=== PATIENT | female | born 1965 | race Caucasian/White ===

== ENCOUNTER 2017-06-10 14:30 | Emergency (ER) | payer MEDICAID, OTHER ==
[~2017-06-10] VITALS: Ht 160 cm; Wt 79.6 kg
[~2017-06-10 14:30] MED LIST: AMLO5TAB2 PO; ASPI-496 PO; ATOR-2 PO; CEFD300C37 PO; CLOT100T PO; ERGO500017 PO; FAMO20TA7 PO; HYDR25TA11 PO; LISI40TA PO; LOSA1TAB22 PO; MELO15TA24 PO; METO25TA35 PO; OMEP40CA3 PO; PANT40TA5 PO; SERT50TA5 PO; SIMV20TA3 PO; TRAM50TA2 PO
[2017-06-10 15:30] LABS: BASOPHILS # (AUTO) 0.07 x10^3/uL (0-0.1); BASOPHILS % (AUTO) 1 % (0-1); EOSINOPHILS # (AUTO) 0.27 x10^3/uL (0-0.4); EOSINOPHILS % (AUTO) 2 % (1-7); LYMPHOCYTES # (AUTO) 2.94 x10^3/uL (1-3.4); LYMPHOCYTES % (AUTO) 26 % (22-44); MD NO; MEAN CORPUSCULAR HEMOGLOBIN 29.9 pg (27.0-34.8); MEAN CORPUSCULAR HGB CONC 33.4 g/dL (32.4-35.8); MEAN CORPUSCULAR VOLUME 89.5 fL (80-100); MEAN PLATELET VOLUME 7.4 fL (7.4-10.4); MONOCYTES # (AUTO) 0.67 x10^3/uL (0.2-0.8); MONOCYTES % (AUTO) 6 % (2-9); NEUTROPHILS # (AUTO) 7.19 x10^3/uL (1.8-6.8); NEUTROPHILS % (AUTO) 65 % (42-75); PLATELET COUNT 420 x10^3/uL (130-400); RED BLOOD COUNT 4.87 x10^6/uL (3.82-5.3); RED CELL DISTRIBUTION WIDTH 12.9 % (9.6-15.2)
[2017-06-10 15:42] LABS: ALBUMIN 4.4 g/dL (3.4-5.0); ANION GAP 9 mmol/L (5-15); CALCIUM 9.9 mg/dL (8.5-10.1); CHLORIDE 103 mmol/L (98-107); CREATININE 1.07 mg/dL (0.55-1.02)
[2017-06-10] MEDS ORDERED: MELO15TA24 PO (17:41)
[2017-06-10] MEDS ORDERED: LOSA1TAB22 PO (17:42)
[2017-06-10] MEDS ORDERED: ATOR40TA PO (17:42)
[2017-06-10 18:55] VITALS: BP 150/74
== END 2017-06-10 18:57 | disposition home or self-care (01) ==
LOC: ED 18:24
DX: G62.9 Polyneuropathy, unspecified (principal); G89.29 Other chronic pain; E78.5 Hyperlipidemia, unspecified; I10 Essential (primary) hypertension
CPT/HCPCS: 36415; 70450; 80048; 82040; 85025; 93005; 99285; J7512

== ENCOUNTER 2017-09-04 20:46 | Inpatient (IN) | payer MEDICAID ==
[~2017-09-04] VITALS: Ht 157.5 cm; Wt 75.0 kg
[~2017-09-04 20:46] MED LIST changes: +ATOR40TA PO
[2017-09-04] MEDS ORDERED: SODIUM CHLORIDE 0.9% 1,000ML IVBOLUS ONE ×2 (21:00→23:00)
[2017-09-04] MEDS ORDERED: ACETAMINOPHEN 500 MG TABLET PO ONE (21:00)
[2017-09-04] MEDS ORDERED: SODIUM CHLORIDE FLUSH 10ML SYR IVF ONE (21:00)
[2017-09-04] MEDS ORDERED: ACETAMINOPHEN 500 MG TABLET ONE (21:12)
[2017-09-04 21:25] LABS: RAPID INFLUENZA A Negative (Negative); RAPID INFLUENZA B Negative (Negative)
[2017-09-04 21:28] LABS: MEAN CORPUSCULAR HEMOGLOBIN 30.3 pg (27.0-34.8); MEAN CORPUSCULAR HGB CONC 33.6 g/dL (32.4-35.8); MEAN CORPUSCULAR VOLUME 90.1 fL (80-100); MEAN PLATELET VOLUME 7.3 fL (7.4-10.4); PLATELET COUNT 341 x10^3/uL (130-400); RED BLOOD COUNT 4.54 x10^6/uL (3.82-5.3); RED CELL DISTRIBUTION WIDTH 12.5 % (9.6-15.2)
[2017-09-04 21:37] LABS: MD YES
[2017-09-04 21:39] LABS: ALBUMIN 4.3 g/dL (3.4-5.0); ANION GAP 11 mmol/L (5-15); CALCIUM 9.3 mg/dL (8.5-10.1); CHLORIDE 104 mmol/L (98-107)
[2017-09-04 21:45] LABS: CULTURE INDICATED? YES; MICROSCOPIC INDICATED
[2017-09-04 21:54] LABS: BAND#(MANUAL) 0.97 x10^3/uL; BANDS%(MANUAL) 4 % (0-7); BASOS#(MANUAL) 0.24 x10^3/uL (0-0.1); BASOS% (MANUAL) 1 % (0-1); EOS#(MANUAL) 0.24 x10^3/uL (0.0-0.4); EOS% (MANUAL) 1 % (1-7); LYMPH#(MANUAL) 1.94 x10^3/uL (1-3.4); LYMPHS% (MANUAL) 8 % (22-44); MONOS#(MANUAL) 0.73 x10^3/uL (0.3-2.7); MONOS% (MANUAL) 3 % (2-9); SEG#(MANUAL) 20.09 x10^3/uL (1.8-6.8); SEGS% (MANUAL) 83 % (42-75)
[2017-09-04 21:55] LABS: <PLATELET ESTIMATE> ADEQUATE; <PLT MORPHOLOGY> NORMAL PLT MORPH; <RBC MORPHOLOGY> NORMAL
[2017-09-04] MEDS ORDERED: CEFTRIAXONE PMX 1GM/50ML 50 ML ONE (23:18)
[2017-09-04] MEDS ORDERED: SODIUM CHLORIDE 0.9% 1,000 ML IV ONE (23:41)
[2017-09-05] MEDS ORDERED: MORPHINE SULFATE 4 MG/ML, 1ML IVPush PRN
[2017-09-05] MEDS ORDERED: ONDANSETRON 2MG/ML, 2ML IVPush PRN
[2017-09-05] MEDS ORDERED: ONDANSETRON ODT 4 MG PO PRN
[2017-09-05] MEDS ORDERED: GUAIFENESIN/DM 200-20MG, 10ML UDC PO PRN
[2017-09-05] MEDS ORDERED: CEFTRIAXONE PMX 1GM/50ML 50 ML ONE (00:20)
[2017-09-05] MEDS ORDERED: CEFTRIAXONE PMX 1GM/50ML 50 ML IV ONE ×2 (00:30)
[2017-09-05] MEDS ORDERED: ERGOCALCIFEROL 50,000 UNIT CAPSULE PO SCH (00:30)
[2017-09-05 01:23] VITALS: BP 128/88
[2017-09-05] MEDS: LACTATED RINGERS 1,000 ML IV SCH ×2 (01:36→14:31)
[2017-09-05 05:41] LABS: MEAN CORPUSCULAR HEMOGLOBIN 29.8 pg (27.0-34.8); MEAN CORPUSCULAR HGB CONC 33.6 g/dL (32.4-35.8); MEAN CORPUSCULAR VOLUME 88.7 fL (80-100); MEAN PLATELET VOLUME 7.2 fL (7.4-10.4); PLATELET COUNT 277 x10^3/uL (130-400); RED BLOOD COUNT 4.17 x10^6/uL (3.82-5.3); RED CELL DISTRIBUTION WIDTH 12.4 % (9.6-15.2)
[2017-09-05 05:46] LABS: ANION GAP 8 mmol/L (5-15); CALCIUM 8.4 mg/dL (8.5-10.1); CHLORIDE 111 mmol/L (98-107); CREATININE 1.12 mg/dL (0.55-1.02)
[2017-09-05 06:57] LABS: MD YES
[2017-09-05 07:00] LABS: BANDS%(MANUAL) 3 % (0-7); LYMPHS% (MANUAL) 6 % (22-44); METAMYELOCYTES% (MANUAL) 1 % (0-1); MONOS% (MANUAL) 5 % (2-9); SEGS% (MANUAL) 85 % (42-75)
[2017-09-05 07:01] LABS: <PLATELET ESTIMATE> ADEQUATE; <PLT MORPHOLOGY> NORMAL PLT MORPH; <RBC MORPHOLOGY> NORMAL
[2017-09-05 07:51] VITALS: BP 133/84
[2017-09-05 08:48] VITALS: BP 159/80
[2017-09-05] MEDS: ASPIRIN 81 MG TABLET EC PO SCH (08:50)
[2017-09-05] MEDS: ACETAMINOPHEN 325 MG TABLET PO PRN ×2 (08:51→17:48)
[2017-09-05] MEDS: CEFTRIAXONE PMX 2GM/50ML 50 ML IV SCH (12:16)
[2017-09-05 13:54] VITALS: BP 152/78
[2017-09-05] MEDS ORDERED: OMNIPAQUE 350 MG/ML, 100ML BOTTLE ONE (18:04)
[2017-09-05 18:45] VITALS: BP 145/61
[2017-09-05] MEDS: ATORVASTATIN 40 MG TABLET PO SCH (20:32)
[2017-09-06 01:14] VITALS: BP 174/98
[2017-09-06] MEDS: LACTATED RINGERS 1,000 ML IV SCH ×2 (05:32→16:30)
[2017-09-06] MEDS: ACETAMINOPHEN 325 MG TABLET PO PRN (05:32)
[2017-09-06] MEDS: ASPIRIN 81 MG TABLET EC PO SCH (08:30)
[2017-09-06 08:32] VITALS: BP 149/89
[2017-09-06 08:32] LABS: MEAN CORPUSCULAR HEMOGLOBIN 29.8 pg (27.0-34.8); MEAN CORPUSCULAR HGB CONC 33.4 g/dL (32.4-35.8); MEAN CORPUSCULAR VOLUME 89.2 fL (80-100); MEAN PLATELET VOLUME 7.2 fL (7.4-10.4); PLATELET COUNT 268 x10^3/uL (130-400); RED BLOOD COUNT 4.02 x10^6/uL (3.82-5.3); RED CELL DISTRIBUTION WIDTH 12.3 % (9.6-15.2)
[2017-09-06 08:52] LABS: BASOPHILS # (AUTO) 0.02 x10^3/uL (0-0.1); BASOPHILS % (AUTO) 0 % (0-1); EOSINOPHILS # (AUTO) 0.21 x10^3/uL (0-0.4); EOSINOPHILS % (AUTO) 1 % (1-7); LYMPHOCYTES # (AUTO) 2.42 x10^3/uL (1-3.4); LYMPHOCYTES % (AUTO) 13 % (22-44); MD SCAN; MONOCYTES # (AUTO) 1.01 x10^3/uL (0.2-0.8); MONOCYTES % (AUTO) 5 % (2-9); NEUTROPHILS # (AUTO) 15.07 x10^3/uL (1.8-6.8); NEUTROPHILS % (AUTO) 81 % (42-75)
[2017-09-06] MEDS: CEFTRIAXONE PMX 2GM/50ML 50 ML IV SCH (12:03)
[2017-09-06 13:37] VITALS: BP 124/84
[2017-09-06 19:40] VITALS: BP 164/95
[2017-09-06] MEDS: ATORVASTATIN 40 MG TABLET PO SCH (20:02)
[2017-09-07 00:59] VITALS: BP 131/83
[2017-09-07] MEDS: ACETAMINOPHEN 325 MG TABLET PO PRN (02:00)
[2017-09-07] MEDS: LACTATED RINGERS 1,000 ML IV SCH (04:53)
[2017-09-07 05:15] LABS: BASOPHILS # (AUTO) 0.03 x10^3/uL (0-0.1); BASOPHILS % (AUTO) 0 % (0-1); EOSINOPHILS # (AUTO) 0.41 x10^3/uL (0-0.4); EOSINOPHILS % (AUTO) 4 % (1-7); LYMPHOCYTES # (AUTO) 2.65 x10^3/uL (1-3.4); LYMPHOCYTES % (AUTO) 24 % (22-44); MD NO; MEAN CORPUSCULAR HEMOGLOBIN 30.1 pg (27.0-34.8); MEAN CORPUSCULAR HGB CONC 33.5 g/dL (32.4-35.8); MEAN CORPUSCULAR VOLUME 89.7 fL (80-100); MEAN PLATELET VOLUME 7.4 fL (7.4-10.4); MONOCYTES # (AUTO) 0.74 x10^3/uL (0.2-0.8); MONOCYTES % (AUTO) 7 % (2-9); NEUTROPHILS # (AUTO) 7.37 x10^3/uL (1.8-6.8); NEUTROPHILS % (AUTO) 66 % (42-75); PLATELET COUNT 283 x10^3/uL (130-400); RED BLOOD COUNT 3.71 x10^6/uL (3.82-5.3); RED CELL DISTRIBUTION WIDTH 12.4 % (9.6-15.2)
[2017-09-07 05:25] LABS: ANION GAP 8 mmol/L (5-15); CALCIUM 8.5 mg/dL (8.5-10.1); CHLORIDE 111 mmol/L (98-107); CREATININE 0.87 mg/dL (0.55-1.02)
[2017-09-07 08:50] VITALS: BP 164/103
[2017-09-07] MEDS: ASPIRIN 81 MG TABLET EC PO SCH (09:02)
[2017-09-07] MEDS ORDERED: FUROSEMIDE 40 MG/4 ML IV ONE (09:30)
[2017-09-07] MEDS ORDERED: POTASSIUM CHLORIDE 20 MEQ TAB.ER.PRT PO ONE (09:30)
[2017-09-07] MEDS ORDERED: CEFTRIAXONE PMX 2GM/50ML 50 ML IV SCH (10:00)
[2017-09-07 11:10] VITALS: BP 134/89
== END 2017-09-07 11:50 | disposition home or self-care (01) | DRG 871 ==
LOC: ED 22:15 → EDIP 23:41 → 4EST 09-05 00:56 → DCLOUNGE 09-07 11:32
PROVIDERS: ADMIT Hospitalist; ATTEND Hospitalist
DX: A41.9 Sepsis, unspecified organism (principal); N17.0 Acute kidney failure with tubular necrosis; N39.0 Urinary tract infection, site not specified; E78.5 Hyperlipidemia, unspecified; G89.29 Other chronic pain; I12.9 Hypertensive chronic kidney disease with stage 1 through stage 4 chronic kidney disease, or unspecified chronic kidney disease; J11.1 Influenza due to unidentified influenza virus with other respiratory manifestations; J45.909 Unspecified asthma, uncomplicated; N18.2 Chronic kidney disease, stage 2 (mild); Z86.73 Personal history of transient ischemic attack (TIA), and cerebral infarction without residual deficits; G62.9 Polyneuropathy, unspecified; M54.5 Low back pain
CPT/HCPCS: 36415; 71046; 74177; 80048; 81001; 82040; 83605; 84145; 85025; 87040; 87086; 87400; 93005; 96365; J0696; J1940; Q9967; J7030; J7120

== ENCOUNTER 2018-01-25 17:30 | Emergency (ER) | payer MEDICAID ==
[~2018-01-25] VITALS: Ht 157.5 cm; Wt 76.0 kg
[2018-01-25] MEDS ORDERED: ALBUTEROL/IPRATROPIUM 2.5MG/0.5MG, 3 ML ONE (17:55)
[2018-01-25] MEDS ORDERED: SODIUM CHLORIDE FLUSH 10ML SYR IVF ONE (18:00)
[2018-01-25] MEDS ORDERED: ALBUTEROL/IPRATROPIUM 2.5MG/0.5MG, 3 ML NPPB ONE (18:00)
[2018-01-25 18:04] LABS: BASOPHILS % (AUTO) 1 % (0-1); EOSINOPHILS # (AUTO) 0.37 x10^3/uL (0-0.4); EOSINOPHILS % (AUTO) 4 % (1-7); LYMPHOCYTES # (AUTO) 3.82 x10^3/uL (1-3.4); LYMPHOCYTES % (AUTO) 36 % (22-44); MD NO; MEAN CORPUSCULAR HGB CONC 33.9 g/dL (32.4-35.8); MEAN CORPUSCULAR VOLUME 88.4 fL (80-100); MEAN PLATELET VOLUME 7.2 fL (7.4-10.4); MONOCYTES # (AUTO) 0.75 x10^3/uL (0.2-0.8); MONOCYTES % (AUTO) 7 % (2-9); NEUTROPHILS # (AUTO) 5.61 x10^3/uL (1.8-6.8); NEUTROPHILS % (AUTO) 53 % (42-75); PLATELET COUNT 493 x10^3/uL (130-400); RED BLOOD COUNT 4.15 x10^6/uL (3.82-5.3); RED CELL DISTRIBUTION WIDTH 12.3 % (9.6-15.2)
[2018-01-25 18:12] LABS: ALANINE AMINOTRANSFERASE 30 U/L (12-78); ANION GAP 8 mmol/L (5-15); CALCIUM 9.2 mg/dL (8.5-10.1); CHLORIDE 108 mmol/L (98-107)
[2018-01-25 18:17] LABS: ALKALINE PHOSPHATASE 99 U/L (45-117); BILIRUBIN,TOTAL 0.3 mg/dL (0.2-1.0); TOTAL PROTEIN 7.8 g/dL (6.4-8.2)
[2018-01-25 18:37] VITALS: BP 123/46
== END 2018-01-25 19:01 | disposition home or self-care (01) ==
LOC: ED 18:50
DX: J20.8 Acute bronchitis due to other specified organisms (principal); B97.89 Other viral agents as the cause of diseases classified elsewhere; I10 Essential (primary) hypertension; G89.29 Other chronic pain; J45.909 Unspecified asthma, uncomplicated; E78.5 Hyperlipidemia, unspecified; Z86.73 Personal history of transient ischemic attack (TIA), and cerebral infarction without residual deficits
CPT/HCPCS: 36415; 71046; 80053; 83880; 85025; 93005; 94640; 99285; J7512

== ENCOUNTER 2018-04-02 16:19 | Emergency (ER) | payer MEDICAID ==
[~2018-04-02] VITALS: Ht 157.5 cm; Wt 78.0 kg
[~2018-04-02 16:19] MED LIST changes: -AMLO5TAB2 PO; +AMLO5TAB7 PO
[2018-04-02] MEDS ORDERED: SODIUM CHLORIDE FLUSH 10ML SYR IVF ONE (17:00)
[2018-04-02 17:16] LABS: BASOPHILS # (AUTO) 0.05 x10^3/uL (0-0.1); BASOPHILS % (AUTO) 1 % (0-1); EOSINOPHILS # (AUTO) 0.45 x10^3/uL (0-0.4); EOSINOPHILS % (AUTO) 5 % (1-7); LYMPHOCYTES % (AUTO) 34 % (22-44); MD NO; MEAN CORPUSCULAR HEMOGLOBIN 30.6 pg (27.0-34.8); MEAN CORPUSCULAR HGB CONC 33.8 g/dL (32.4-35.8); MEAN CORPUSCULAR VOLUME 90.5 fL (80-100); MEAN PLATELET VOLUME 7.7 fL (7.4-10.4); MONOCYTES % (AUTO) 7 % (2-9); NEUTROPHILS # (AUTO) 5.43 x10^3/uL (1.8-6.8); NEUTROPHILS % (AUTO) 54 % (42-75); PLATELET COUNT 412 x10^3/uL (130-400); RED BLOOD COUNT 4.37 x10^6/uL (3.82-5.3); RED CELL DISTRIBUTION WIDTH 12.9 % (9.6-15.2)
[2018-04-02 17:16] LABS: MICROSCOPIC AUTO
[2018-04-02 17:17] LABS: CULTURE INDICATED? YES
[2018-04-02 17:24] LABS: ALANINE AMINOTRANSFERASE 46 U/L (12-78); ANION GAP 8 mmol/L (5-15); CALCIUM 9.2 mg/dL (8.5-10.1); CHLORIDE 109 mmol/L (98-107); CREATININE 1.04 mg/dL (0.55-1.02)
[2018-04-02 17:27] LABS: ALKALINE PHOSPHATASE 104 U/L (45-117); BILIRUBIN,TOTAL 0.2 mg/dL (0.2-1.0); TOTAL PROTEIN 7.6 g/dL (6.4-8.2)
[2018-04-02] MEDS ORDERED: PHENAZOPYRIDINE 200 MG TABLET PO ONE (18:00)
[2018-04-02] MEDS ORDERED: OMNIPAQUE 350 MG/ML, 100ML BOTTLE ONE (18:05)
[2018-04-02] MEDS ORDERED: PHENAZOPYRIDINE 200 MG TABLET ONE (18:14)
[2018-04-02 18:17] VITALS: BP 131/74
== END 2018-04-02 18:52 | disposition home or self-care (01) ==
LOC: ED 17:38
DX: N30.00 Acute cystitis without hematuria (principal); R10.32 Left lower quadrant pain; J45.909 Unspecified asthma, uncomplicated; M54.9 Dorsalgia, unspecified; G89.29 Other chronic pain; I10 Essential (primary) hypertension; Z86.73 Personal history of transient ischemic attack (TIA), and cerebral infarction without residual deficits
CPT/HCPCS: 36415; 74177; 80053; 81001; 83690; 85025; 87086; 99285; Q9967

== ENCOUNTER 2018-05-13 19:36 | Emergency (ER) | payer MEDICAID ==
[~2018-05-13] VITALS: Ht 157.5 cm; Wt 80.9 kg
[~2018-05-13 19:36] MED LIST changes: +AMLO-150 PO; -AMLO5TAB7 PO
[2018-05-13] MEDS ORDERED: ACETAMINOPHEN 500 MG TABLET PO ONE (20:00)
[2018-05-13] MEDS ORDERED: DIPHENHYDRAMINE 25 MG CAPSULE PO ONE (21:00)
[2018-05-13] MEDS ORDERED: PROCHLORPERAZINE 5 MG/ML, 2ML IM ONE (21:00)
[2018-05-13] MEDS ORDERED: KETOROLAC 30 MG/1 ML IM ONE (21:00)
[2018-05-13 21:02] LABS: BASOPHILS # (AUTO) 0.08 x10^3/uL (0-0.1); BASOPHILS % (AUTO) 1 % (0-1); EOSINOPHILS % (AUTO) 4 % (1-7); LYMPHOCYTES # (AUTO) 3.55 x10^3/uL (1-3.4); LYMPHOCYTES % (AUTO) 42 % (22-44); MD NO; MEAN CORPUSCULAR HEMOGLOBIN 30.3 pg (27.0-34.8); MEAN CORPUSCULAR HGB CONC 33.8 g/dL (32.4-35.8); MEAN CORPUSCULAR VOLUME 89.4 fL (80-100); MEAN PLATELET VOLUME 7.2 fL (7.4-10.4); MONOCYTES # (AUTO) 0.62 x10^3/uL (0.2-0.8); MONOCYTES % (AUTO) 7 % (2-9); NEUTROPHILS % (AUTO) 46 % (42-75); PLATELET COUNT 340 x10^3/uL (130-400); RED BLOOD COUNT 4.15 x10^6/uL (3.82-5.3); RED CELL DISTRIBUTION WIDTH 12.5 % (9.6-15.2)
[2018-05-13] MEDS ORDERED: PROCHLORPERAZINE 5 MG/ML, 2ML ONE (21:12)
[2018-05-13] MEDS ORDERED: DIPHENHYDRAMINE 25 MG CAPSULE ONE (21:12)
[2018-05-13] MEDS ORDERED: KETOROLAC 30 MG/1 ML ONE (21:12)
[2018-05-13] MEDS ORDERED: ACETAMINOPHEN 500 MG TABLET ONE (21:13)
[2018-05-13 21:14] LABS: ALBUMIN 3.9 g/dL (3.4-5.0); ANION GAP 6 mmol/L (5-15); CHLORIDE 109 mmol/L (98-107)
[2018-05-13 21:20] LABS: CREATININE 1.07 mg/dL (0.55-1.02); TROPONIN I < 0.015 ng/mL (0.000-0.045)
[2018-05-13] MEDS ORDERED: SODIUM CHLORIDE 0.9% 1,000ML IVBOLUS ONE (21:30)
[2018-05-13 22:21] VITALS: BP 164/86
== END 2018-05-13 22:47 | disposition home or self-care (01) ==
LOC: ED 20:36
DX: G43.009 Migraine without aura, not intractable, without status migrainosus (principal); I10 Essential (primary) hypertension; R07.9 Chest pain, unspecified; E78.5 Hyperlipidemia, unspecified; J45.909 Unspecified asthma, uncomplicated; Z86.73 Personal history of transient ischemic attack (TIA), and cerebral infarction without residual deficits
CPT/HCPCS: 36415; 71045; 80048; 82040; 84484; 85025; 93005; 96372; 99284; J0780; J1885; Q0163

== ENCOUNTER 2019-04-23 14:11 | Emergency (ER) | payer MEDICAID ==
[~2019-04-23] VITALS: Ht 160 cm; Wt 80.7 kg
[~2019-04-23 14:11] MED LIST changes: +DIPH25CA61 PO; +HYDR-826 PO; -HYDR25TA11 PO; +IBUP-1223 PO; +METF500T17 PO; +SERT50TA28 PO; -SERT50TA5 PO; +VITAMIN D2 PO
[2019-04-23 14:19] VITALS: BP 116/87
[2019-04-23] MEDS ORDERED: KETOROLAC 30 MG/1 ML IM ONE (15:00)
[2019-04-23] MEDS ORDERED: KETOROLAC 30 MG/1 ML ONE (15:09)
--- NOTE | 2019-04-23 15:44 | NUR ---
TASK RN, FIRST CONTACT WITH PT. Patient given discharge instructions and they have confirmed that they understand the instructions. Patient ambulatory with steady gait. Pt left with d/c paperwork, Rx, incentive spirometer, and all personal belongings.
== END 2019-04-23 15:52 | disposition home or self-care (01) ==
LOC: ED 14:32
DX: R07.89 Other chest pain (principal); R06.00 Dyspnea, unspecified; M54.6 Pain in thoracic spine; R05 Cough; Z72.9 Problem related to lifestyle, unspecified; E66.01 Morbid (severe) obesity due to excess calories; Z68.37 Body mass index [BMI] 37.0-37.9, adult; I10 Essential (primary) hypertension; E11.9 Type 2 diabetes mellitus without complications; J45.909 Unspecified asthma, uncomplicated; G89.29 Other chronic pain; Z86.73 Personal history of transient ischemic attack (TIA), and cerebral infarction without residual deficits
CPT/HCPCS: 36415; 71046; 85379; 93005; 96372; 99284; J1885

== ENCOUNTER 2019-08-29 12:48 | Emergency (ER) | payer MEDICAID ==
[~2019-08-29] VITALS: Ht 160 cm; Wt 79.0 kg
[~2019-08-29 12:48] MED LIST changes: +SIMV20TA19 PO; -SIMV20TA3 PO
--- NOTE | 2019-08-29 13:01 | NUR ---
Arnel rodriguez in [facility] - 08/29/19 at 1302 by CIARA THIS RN PRESENT DURING EKG
--- NOTE | 2019-08-29 15:03 | NUR ---
PT AMBULATORY WITH STEADY GAIT TO ROOM. KIANNAN
--- NOTE | 2019-08-29 15:09 | NUR ---
PT REPORTS RT FLANK PAIN X4 DAYS. "OFF AND ON COUGH" DENIES URINARY SYMTOMS.
[2019-08-29] MEDS ORDERED: HYDR25TA6 PO (15:12)
--- NOTE | 2019-08-29 15:25 | NUR ---
REPORT TO DEENA HAHN.
[2019-08-29] MEDS ORDERED: SODIUM CHLORIDE FLUSH 10ML SYR IVF ONE (16:00)
[2019-08-29] MEDS ORDERED: KETOROLAC 30 MG/1 ML IVPush ONE (16:00)
[2019-08-29] MEDS ORDERED: SODIUM CHLORIDE 0.9% 1,000ML IVBOLUS ONE (16:00)
[2019-08-29] MEDS ORDERED: KETOROLAC 30 MG/1 ML ONE (16:04)
[2019-08-29 16:17] VITALS: BP 134/81
[2019-08-29 16:17] LABS: BASOPHILS # (AUTO) 0.06 x10^3/uL (0-0.1); BASOPHILS % (AUTO) 1 % (0-1); EOSINOPHILS # (AUTO) 0.25 x10^3/uL (0-0.4); EOSINOPHILS % (AUTO) 2 % (1-7); LYMPHOCYTES # (AUTO) 3.36 x10^3/uL (1-3.4); LYMPHOCYTES % (AUTO) 33 % (22-44); MD NO; MEAN CORPUSCULAR HEMOGLOBIN 29.6 pg (27.0-34.8); MEAN CORPUSCULAR HGB CONC 33.1 g/dL (32.4-35.8); MEAN CORPUSCULAR VOLUME 89.3 fL (80-100); MONOCYTES # (AUTO) 0.75 x10^3/uL (0.2-0.8); MONOCYTES % (AUTO) 7 % (2-9); NEUTROPHILS # (AUTO) 5.68 x10^3/uL (1.8-6.8); NEUTROPHILS % (AUTO) 56 % (42-75); PLATELET COUNT 394 x10^3/uL (130-400); RED BLOOD COUNT 4.89 x10^6/uL (3.82-5.3); RED CELL DISTRIBUTION WIDTH 12.5 % (9.6-15.2)
[2019-08-29 16:23] LABS: MICROSCOPIC NOT IND
[2019-08-29 16:24] LABS: ALANINE AMINOTRANSFERASE 63 U/L (12-78); ALBUMIN 4.1 g/dL (3.4-5.0); ANION GAP 6 mmol/L (5-15); CALCIUM 10.1 mg/dL (8.5-10.1); CHLORIDE 105 mmol/L (98-107); CREATININE 1.16 mg/dL (0.55-1.02)
[2019-08-29 16:27] LABS: ALKALINE PHOSPHATASE 137 U/L (45-117)
[2019-08-29 16:28] LABS: BILIRUBIN,TOTAL < 0.1 mg/dL (0.2-1.0)
[2019-08-29 16:29] LABS: CULTURE INDICATED? NO
== END 2019-08-29 17:07 | disposition home or self-care (01) ==
LOC: ED 17:04
DX: R11.10 Vomiting, unspecified (principal); E86.0 Dehydration; R07.89 Other chest pain; R05 Cough; R00.0 Tachycardia, unspecified; G43.909 Migraine, unspecified, not intractable, without status migrainosus; E11.9 Type 2 diabetes mellitus without complications; J45.909 Unspecified asthma, uncomplicated; G89.29 Other chronic pain; I10 Essential (primary) hypertension; E78.5 Hyperlipidemia, unspecified; Z86.73 Personal history of transient ischemic attack (TIA), and cerebral infarction without residual deficits
CPT/HCPCS: 36415; 71045; 80053; 81003; 85025; 93005; 96361; 96374; 99285; J1885; J7030

== ENCOUNTER 2019-11-19 17:57 | Emergency (ER) | payer MEDICAID ==
[~2019-11-19] VITALS: Ht 160 cm; Wt 79.7 kg
[~2019-11-19 17:57] MED LIST changes: +HYDR25TA6 PO
[2019-11-19 19:04] LABS: BASOPHILS # (AUTO) 0.05 x10^3/uL (0-0.1); BASOPHILS % (AUTO) 1 % (0-1); EOSINOPHILS % (AUTO) 3 % (1-7); LYMPHOCYTES # (AUTO) 2.97 x10^3/uL (1-3.4); LYMPHOCYTES % (AUTO) 29 % (22-44); MD NO; MEAN CORPUSCULAR HEMOGLOBIN 30.2 pg (27.0-34.8); MEAN CORPUSCULAR HGB CONC 33.5 g/dL (32.4-35.8); MEAN PLATELET VOLUME 7.9 fL (7.4-10.4); MONOCYTES # (AUTO) 0.77 x10^3/uL (0.2-0.8); MONOCYTES % (AUTO) 8 % (2-9); NEUTROPHILS # (AUTO) 6.28 x10^3/uL (1.8-6.8); NEUTROPHILS % (AUTO) 61 % (42-75); PLATELET COUNT 375 x10^3/uL (130-400); RED BLOOD COUNT 4.86 x10^6/uL (3.82-5.3); RED CELL DISTRIBUTION WIDTH 12.7 % (9.6-15.2)
[2019-11-19 19:10] LABS: ALANINE AMINOTRANSFERASE 79 U/L (12-78); ANION GAP 8 mmol/L (5-15); CALCIUM 9.5 mg/dL (8.5-10.1); CHLORIDE 103 mmol/L (98-107); CREATININE 1.14 mg/dL (0.55-1.02)
[2019-11-19 19:14] LABS: ALKALINE PHOSPHATASE 134 U/L (45-117); BILIRUBIN,TOTAL 0.5 mg/dL (0.2-1.0); TROPONIN I < 0.015 ng/mL (0.000-0.045)
[2019-11-19 19:19] LABS: MICROSCOPIC NOT IND
[2019-11-19] MEDS ORDERED: MAALOX/HYOSCYAMINE/LIDOCAINE 45 ML BTL ONE (19:50)
[2019-11-19] MEDS ORDERED: MAALOX/HYOSCYAMINE/LIDOCAINE 45 ML BTL PO ONE (20:00)
[2019-11-19 20:57] VITALS: BP 151/87
== END 2019-11-19 20:59 | disposition home or self-care (01) ==
LOC: ED 18:26
DX: R07.89 Other chest pain (principal); R11.2 Nausea with vomiting, unspecified; R00.0 Tachycardia, unspecified; I10 Essential (primary) hypertension; E11.9 Type 2 diabetes mellitus without complications; E78.5 Hyperlipidemia, unspecified; G89.29 Other chronic pain; Z86.73 Personal history of transient ischemic attack (TIA), and cerebral infarction without residual deficits
CPT/HCPCS: 36415; 71045; 80053; 81003; 83690; 84484; 85025; 93005; 99285

== ENCOUNTER 2020-04-15 13:40 | Emergency (ER) | payer MEDICAID ==
[~2020-04-15] VITALS: Ht 160 cm; Wt 78.2 kg
[~2020-04-15 13:40] MED LIST changes: -PANT40TA5 PO; +PANT40TA6 PO
--- NOTE | 2020-04-15 14:15 | NUR ---
PT WAS UP TO BSC.
[2020-04-15 14:44] LABS: BASOPHILS % (AUTO) 1 % (0-1); EOSINOPHILS % (AUTO) 1 % (1-7); LYMPHOCYTES % (AUTO) 36 % (22-44); MEAN CORPUSCULAR HEMOGLOBIN 30.2 pg (27.0-34.8); MEAN CORPUSCULAR HGB CONC 33.7 g/dL (32.4-35.8); MEAN PLATELET VOLUME 7.5 fL (7.4-10.4); MONOCYTES % (AUTO) 9 % (2-9); NEUTROPHILS % (AUTO) 53 % (42-75); PLATELET COUNT 270 x10^3/uL (130-400); RED BLOOD COUNT 4.78 x10^6/uL (3.82-5.3); RED CELL DISTRIBUTION WIDTH 12.4 % (9.6-15.2)
[2020-04-15 14:45] LABS: MD NO
[2020-04-15 14:47] LABS: ALBUMIN 3.9 g/dL (3.4-5.0); ANION GAP 7 mmol/L (5-15); CALCIUM 8.6 mg/dL (8.5-10.1); CHLORIDE 105 mmol/L (98-107); CREATININE 1.06 mg/dL (0.55-1.02)
[2020-04-15] MEDS ORDERED: POTASSIUM CHLORIDE 10% 40 MEQ/30 ML UDC PO ONE (15:00)
--- NOTE | 2020-04-15 15:00 | NUR ---
WATER PROVIDED TO PT. INSTRUCTED PT ON CLEAN CATCH URINE SAMPLE.
[2020-04-15 15:26] LABS: MICROSCOPIC INDICATED
[2020-04-15 15:35] VITALS: BP 166/102
--- NOTE | 2020-04-15 15:45 | NUR ---
RV'WD POC WITH PT. PT'S BOYFRIEND GABI CALLED, WILL BE ABLE TO PICK HER UP.
--- NOTE | 2020-04-15 16:00 | NUR ---
D/C INSTRUCTIONS & F/U APPT RV'WD WITH PT, SHE VERBALIZES UNDERSTANDING. AMBULATED OUT OF ED WITHOUT DIFFICULTY. STATES SHE WILL CALL HER BOYFRIEND TO PICK HER UP.
== END 2020-04-15 16:18 | disposition home or self-care (01) ==
LOC: ED 15:59
DX: B34.9 Viral infection, unspecified (principal); R07.9 Chest pain, unspecified; R94.31 Abnormal electrocardiogram [ECG] [EKG]; I10 Essential (primary) hypertension; E11.9 Type 2 diabetes mellitus without complications; J45.909 Unspecified asthma, uncomplicated; E78.5 Hyperlipidemia, unspecified; Z86.73 Personal history of transient ischemic attack (TIA), and cerebral infarction without residual deficits
CPT/HCPCS: 36415; 71045; 80048; 81001; 82040; 85025; 87086; 93005; 99285

== ENCOUNTER 2020-04-18 08:30 | Emergency (ER) | payer MEDICAID ==
[~2020-04-18] VITALS: Ht 160 cm; Wt 77.0 kg
--- NOTE | 2020-04-18 09:20 | NUR ---
PT TO ROOM FROM LOBBY
[2020-04-18 09:58] VITALS: BP 125/82
--- NOTE | 2020-04-18 10:04 | NUR ---
PT PRESENTS TO ED WITH C/O DIARRHEA X 2 IN LAST 24 HRS, QUERY COVID EXPOSURE. PT DENIES OTHER SX. NO N/V/D EXIBITED IN ED. PT A&O, RESPS EVEN AND UNLABORED, SATTING >90% ON ROOM AIR WITH NO DIFFICULTY BREATHING. COVID SWAB COLLECTED BY EDPA, VS REASSESSED AND REVIEWED BY EDPA. PT GIVEN DC INSTRUCTIONS INCLUDING ISOLATION CRITERIA. PT AMBULATORY TO DC DESK WITH STEADY GAIT, ALL QUESTIONS ANSWERED.
== END 2020-04-18 10:03 | disposition home or self-care (01) ==
LOC: ED 09:39
DX: R19.7 Diarrhea, unspecified (principal); Z11.59 Encounter for screening for other viral diseases; I10 Essential (primary) hypertension; E11.9 Type 2 diabetes mellitus without complications; G89.29 Other chronic pain; J45.909 Unspecified asthma, uncomplicated; E78.5 Hyperlipidemia, unspecified; G43.909 Migraine, unspecified, not intractable, without status migrainosus; Z86.73 Personal history of transient ischemic attack (TIA), and cerebral infarction without residual deficits
CPT/HCPCS: 87635; 99283

== ENCOUNTER 2020-09-01 18:49 | Emergency (ER) | payer MEDICAID ==
[~2020-09-01] VITALS: Ht 160 cm; Wt 76.8 kg
[~2020-09-01 18:49] MED LIST changes: -LISI40TA PO; +LISI40TA9 PO
--- NOTE | 2020-09-01 20:31 | NUR ---
PT AMBULATORY TO ROOM 25 W/ C/O HTN. PT STATES SHE HAS [facility] OUT OF MEDS X 2 MONTHS. STATES THEY JUST MVOED TO [facility] AND SHE DOESN'T HAVE A PCP. PT RESTING ON GURNEY. NADN. MONITORS APPLIED. BP REMAINS ELEVATED. THIAGO SPICER AT BEDSIDE FOR EVAL.
[2020-09-01] MEDS ORDERED: hydrALAzine 20 MG/ML, 1ML ONE (20:41)
--- NOTE | 2020-09-01 20:56 | NUR ---
RECEIVED REPORT FROM SUDEEP SHAFFER. ASSUMING CARE AT THIS TIME.
[2020-09-01 20:57] LABS: BASOPHILS % (AUTO) 1 % (0-1); EOSINOPHILS % (AUTO) 2 % (1-7); LYMPHOCYTES % (AUTO) 39 % (22-44); MEAN CORPUSCULAR HEMOGLOBIN 30.3 pg (27.0-34.8); MEAN CORPUSCULAR HGB CONC 34.1 g/dL (32.4-35.8); MEAN PLATELET VOLUME 7.4 fL (7.4-10.4); MONOCYTES % (AUTO) 8 % (2-9); NEUTROPHILS % (AUTO) 50 % (42-75); PLATELET COUNT 331 x10^3/uL (130-400); RED BLOOD COUNT 4.71 x10^6/uL (3.82-5.3); RED CELL DISTRIBUTION WIDTH 12.6 % (9.6-15.2)
--- NOTE | 2020-09-01 20:57 | NUR ---
REPORT GIVEN TO DEENA STEPHENS.
[2020-09-01 20:58] LABS: MD NO
[2020-09-01] MEDS ORDERED: SODIUM CHLORIDE FLUSH 10ML SYR IVF ONE (21:00)
[2020-09-01] MEDS ORDERED: hydrALAzine 20 MG/ML, 1ML IV ONE (21:00)
[2020-09-01] MEDS ORDERED: SODIUM CHLORIDE 0.9% 1,000ML IVBOLUS ONE (21:00)
[2020-09-01 21:09] LABS: ALANINE AMINOTRANSFERASE 61 U/L (12-78); ALBUMIN 4.3 g/dL (3.4-5.0); ANION GAP 8 mmol/L (5-15); CALCIUM 9.2 mg/dL (8.5-10.1); CHLORIDE 105 mmol/L (98-107); CREATININE 0.85 mg/dL (0.55-1.02)
--- NOTE | 2020-09-01 21:12 | NUR ---
PT AMBULATED TO RESTROOM WITH STEADY GAIT.
[2020-09-01 21:14] LABS: ALKALINE PHOSPHATASE 144 U/L (45-117); BILIRUBIN,TOTAL 0.5 mg/dL (0.2-1.0); TROPONIN I < 0.015 ng/mL (0.000-0.045)
--- NOTE | 2020-09-01 21:23 | NUR ---
ALL RESULTS ARE BACK AT THIS TIME. CHART UP FOR RECHECK.
--- NOTE | 2020-09-01 21:48 | NUR ---
BOYFRIENDeven ASHLEY: [phone]. RIDE HOME
[2020-09-01 22:31] VITALS: BP 157/82
== END 2020-09-01 22:33 | disposition home or self-care (01) ==
LOC: ED 20:56
DX: R42 Dizziness and giddiness (principal); I10 Essential (primary) hypertension; E11.9 Type 2 diabetes mellitus without complications; G89.29 Other chronic pain; R94.31 Abnormal electrocardiogram [ECG] [EKG]; Z76.0 Encounter for issue of repeat prescription; G43.909 Migraine, unspecified, not intractable, without status migrainosus; Z86.73 Personal history of transient ischemic attack (TIA), and cerebral infarction without residual deficits
CPT/HCPCS: 36415; 71045; 80053; 84484; 85025; 93005; 96361; 96374; 99285; J0360; J7030

== ENCOUNTER 2020-12-29 15:51 | Emergency (ER) | payer MEDICAID ==
[~2020-12-29] VITALS: Ht 160 cm; Wt 75.8 kg
--- NOTE | 2020-12-29 16:06 | NUR ---
PT UP TO THE BATHROOM TO PROVIDE URINE SAMPLE
--- NOTE | 2020-12-29 16:20 | NUR ---
PT STATES SHE WENT FOR A FREE WELL CHECK AND "EVERYTHING WAS HIGH". PT'S PHYSICAL COMPLAINT IS FEELING TIRED. PT HX OF HYPERTENSION AND DM2, BUT HAS NOT BEEN TAKING MEDCIATIONS DUE TO NOT HAVING A PRIMARY CARE AND NOT ABLE TO REFILL PRESCRIPTIONS.
[2020-12-29 16:38] LABS: BASOPHILS % (AUTO) 0 % (0-1); EOSINOPHILS % (AUTO) 2 % (1-7); LYMPHOCYTES % (AUTO) 38 % (22-44); MEAN CORPUSCULAR HEMOGLOBIN 30.1 pg (27.0-34.8); MEAN CORPUSCULAR HGB CONC 33.4 g/dL (32.4-35.8); MONOCYTES % (AUTO) 8 % (2-9); NEUTROPHILS % (AUTO) 52 % (42-75); PLATELET COUNT 297 x10^3/uL (130-400); RED BLOOD COUNT 4.44 x10^6/uL (3.82-5.3); RED CELL DISTRIBUTION WIDTH 12.7 % (9.6-15.2)
[2020-12-29 16:42] LABS: ALBUMIN 3.6 g/dL (3.4-5.0); ANION GAP 4 mmol/L (5-15); CALCIUM 8.7 mg/dL (8.5-10.1); CHLORIDE 106 mmol/L (98-107); CREATININE 0.95 mg/dL (0.55-1.02)
[2020-12-29 18:05] VITALS: BP 183/94
--- NOTE | 2020-12-29 18:06 | NUR ---
PT REC'VD EDUCATION AND DISCHARGE INSTRUCTIONS. PT HAD NO FURTHER QUESTIONS.
== END 2020-12-29 18:14 | disposition home or self-care (01) ==
LOC: ED 17:07
DX: E11.65 Type 2 diabetes mellitus with hyperglycemia (principal); I10 Essential (primary) hypertension; J45.909 Unspecified asthma, uncomplicated; Z86.73 Personal history of transient ischemic attack (TIA), and cerebral infarction without residual deficits; Z91.14 Patient's other noncompliance with medication regimen
CPT/HCPCS: 36415; 80048; 82040; 82962; 85025; 99283

== ENCOUNTER 2021-01-07 14:18 | Emergency (ER) | payer MEDICAID ==
[~2021-01-07] VITALS: Ht 157.5 cm; Wt 74.5 kg
--- NOTE | 2021-01-07 14:40 | NUR ---
RETAIL SPECIAL EVENT ASSOCIATE: PT ROOM FROM [facility]
[2021-01-07] MEDS ORDERED: SODIUM CHLORIDE 0.9% 1,000ML IVBOLUS ONE (15:00)
[2021-01-07 15:14] LABS: BASOPHILS % (AUTO) 1 % (0-1); EOSINOPHILS % (AUTO) 2 % (1-7); LYMPHOCYTES % (AUTO) 23 % (22-44); MEAN CORPUSCULAR HEMOGLOBIN 30.5 pg (27.0-34.8); MEAN CORPUSCULAR HGB CONC 34.3 g/dL (32.4-35.8); MEAN PLATELET VOLUME 7.6 fL (7.4-10.4); MONOCYTES % (AUTO) 10 % (2-9); NEUTROPHILS % (AUTO) 65 % (42-75); PH, VENOUS 7.387 pH (7.320-7.420); PLATELET COUNT 299 x10^3/uL (130-400); RED BLOOD COUNT 4.74 x10^6/uL (3.82-5.3); RED CELL DISTRIBUTION WIDTH 12.6 % (9.6-15.2)
[2021-01-07 15:27] LABS: ALANINE AMINOTRANSFERASE 67 U/L (12-78); ALBUMIN 3.8 g/dL (3.4-5.0); ANION GAP 7 mmol/L (5-15); CALCIUM 9.2 mg/dL (8.5-10.1); CHLORIDE 104 mmol/L (98-107); CREATININE 1.06 mg/dL (0.55-1.02); FIO2 ROOM AIR %
[2021-01-07 15:30] LABS: ALKALINE PHOSPHATASE 168 U/L (45-117); BILIRUBIN,TOTAL 0.6 mg/dL (0.2-1.0); TOTAL PROTEIN 7.9 g/dL (6.4-8.2)
[2021-01-07 15:48] LABS: MICROSCOPIC NOT IND
[2021-01-07 16:03] LABS: ACETONE, SERUM Negative (Negative)
--- NOTE | 2021-01-07 16:07 | NUR ---
Lab results reviewed and chart marked for recheck by .
--- NOTE | 2021-01-07 16:22 | NUR ---
VS reassessed and IV site saline locked. PA notified of continued elevated BP. Pt assisted to restroom and back without issue.
[2021-01-07 18:00] VITALS: BP 194/94
== END 2021-01-07 18:03 | disposition home or self-care (01) ==
LOC: ED 15:45
DX: E11.65 Type 2 diabetes mellitus with hyperglycemia (principal); R10.9 Unspecified abdominal pain; R00.0 Tachycardia, unspecified; I10 Essential (primary) hypertension; J45.909 Unspecified asthma, uncomplicated; G43.909 Migraine, unspecified, not intractable, without status migrainosus; E78.5 Hyperlipidemia, unspecified; Z86.73 Personal history of transient ischemic attack (TIA), and cerebral infarction without residual deficits
CPT/HCPCS: 36415; 80053; 81003; 82010; 82803; 85025; 93005; 96360; 99284; J7030